=== PATIENT | male | born 2000 | race African-American/Black ===

== ENCOUNTER 2019-07-19 23:29 | Emergency (ER) | payer BC ==
--- NOTE | 2019-07-20 00:10 | EDM.PDOC ---
ED HPI GENERAL MEDICAL PROBLEM - General Chief Complaint: ENT Problem Stated Complaint: SORE THROAT/DIFFICULTY SWALLOWING Time Seen by Provider: 07/19/19 23:56 Source of Information: Reports: Patient History Limitations: Reports: No Limitations - History of Present Illness INITIAL COMMENTS - FREE TEXT/NARRATIVE: Mr. Smyth is a very pleasant 19-year-old man who presents to the ED with a sore throat felt on the right side of his throat since 07/17/2019. He has significant pain with swallowing. No other complaints, such as nasal or sinus congestion, the sensation of postnasal drip, cough, fever, or chills. He states that he has not taken any [id number] or home remedies to try to treat his symptoms. The patient does not have a PCP. He has not received an influenza vaccine this season, but agreed to receive one here in the ED. Throat Pain Score (Numeric/FACES): 8 - Related Data Allergies Allergy/AdvReac Type Severity Reaction Status Date / Time No Known Allergies Allergy Verified 07/19/19 23:55 Home Meds: Home Meds . 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 ED EXAM, ENT - Physical Exam Exam: See Below Exam Limited By: No Limitations General Appearance: Alert, WD/WN, No Apparent Distress Eye Exam: Bilateral Eye: EOMI, Normal Inspection Ears: Other (Left external ear malformed, canal closed. Right external ear, canal, and TM normal, although 2 scars are noted on the right TM. No bulging or fluid seen.) Nose: Other (Moderate bilateral nasal mucosa edema) Mouth/Throat: Normal Gums, Normal Lips, Normal Teeth, Other (Anatomically large right tonsil, with small to moderate sized left tonsil. No oropharyngeal erythema, cobblestoning, or tonsillar exudates.) Head: Atraumatic, Normocephalic Neck: Normal Inspection, Supple, Non-Tender, Full Range of Motion. No: Lymphadenopathy (L), Lymphadenopathy (R) Course - Vital Signs Last Recorded V/S: Last Vital Signs Temp 36.4 C 07/19/19 23:50 Pulse 85 07/19/19 23:50 Resp 18 07/19/19 23:50 BP 141/102 H 07/19/19 23:50 Pulse Ox 97 07/19/19 23:50 - Orders/Labs/Meds Orders: Active Orders 24 hr Category Date Time Status Influenza Vaccine Charge [RC] .DISCHARGE Care 07/20/19 00:04 Active CULTURE STREP A CONFIRMATION [] Stat Lab 07/20/19 00:04 Results STREP SCRN A RAPID W CULT CONF [] Stat Lab 07/20/19 00:04 Results Pharmacy to Dose - InFluenza V [Pharmacy to Dose - Med 07/20/19 00:04 Pending InFluenza Vaccine] 1 each IM ONETIME ONE Medication Orders Influenza Virus Vaccine (Pharmacy To Dose - Influenza Vaccine) 1 each IM ONETIME ONE Stop: 07/20/19 00:05 Meds: Medications Generic Name Dose Route Start Last Admin Trade Name Freq PRN Reason Stop Dose Admin Influenza Virus Vaccine 1 each 07/20/19 00:04 Pharmacy To Dose - Influenza Vaccine IM 07/20/19 00:05 ONETIME ONE Discontinued Medications Generic Name Dose Route Start Last Admin Trade Name Freq PRN Reason Stop Dose Admin Influenza Virus Vaccine 60 mcg 07/20/19 00:15 07/20/19 00:17 Fluzone Quad [id number] Syringe IM 07/20/19 00:16 60 mcg .ONCE ONE Administration - Re-Assessments/Exams Free Text/Narrative Re-Assessment/Exam: 07/20/19 00:05 The patient appears to have an anatomic a large right tonsil, with a small to moderate-sized left tonsil, however, there is no increased erythema to his oropharynx. I swabbed for a rapid strep test. 07/20/19 00:37 The patient's rapid strep test has returned negative. 07/20/19 00:38 Test results discussed with the patient. His negative rapid strep test indicates that his sore throat is likely viral in etiology. I recommended Tylenol or ibuprofen, Chloraseptic spray, and warm salt water gargles. Departure - Departure Time of Disposition: 00:39 Disposition: Home, Self-Care 01 Condition: Good Clinical Impression: Viral pharyngitis - Discharge Information *PRESCRIPTION DRUG MONITORING PROGRAM REVIEWED*: Not Applicable *COPY OF PRESCRIPTION DRUG MONITORING REPORT IN PATIENT TONJA: Not Applicable Referrals: PCP,None [Primary Care Provider] - Forms: ED Department Discharge Additional Instructions: You were seen in the emergency room for a sore throat for the past 2 days. Workup in the ER included a rapid strep test, which returned negative. Based on your history, physical exam, and rapid strep test, you are most likely suffering from viral pharyngitis. Unfortunately, there are no medicines to treat viral pharyngitis - it will have to run its course. We recommend that you take Tylenol or ibuprofen as needed for discomfort, along with Chloraseptic spray and warm salt water gargles. If any other problems, please do not hesitate to return to the ER. *You received an influenza vaccine during your ER visit.* - My Orders Last 24 Hours: My Active Orders 07/20/19 00:04 Influenza Vaccine Charge [RC] .DISCHARGE CULTURE STREP A CONFIRMATION [RM] Stat STREP SCRN A RAPID W CULT CONF [] Stat Pharmacy to Dose - InFluenza V [Pharmacy to Dose - InFluenza Vaccine] 1 each IM ONETIME ONE - Assessment/Plan Last 24 Hours: My Active Orders 07/20/19 00:04 Influenza Vaccine Charge [RC] .DISCHARGE CULTURE STREP A CONFIRMATION [RM] Stat STREP SCRN A RAPID W CULT CONF [] Stat Pharmacy to Dose - InFluenza V [Pharmacy to Dose - InFluenza Vaccine] 1 each IM ONETIME ONE
[2019-07-20] MEDS ORDERED: FLU Vacc QS2019-20(6MOS+)/PF 60 MCG/0.5 ML SYRINGE IM ONE (00:15)
== END 2019-07-20 00:46 | disposition home or self-care (01) ==
LOC: JD.ED 23:29
DX: J02.9 Acute pharyngitis, unspecified (principal); F17.220 Nicotine dependence, chewing tobacco, uncomplicated; Z23 Encounter for immunization
CPT/HCPCS: 87081; 87430; 90471; 90686; 99281; 99283

== ENCOUNTER 2019-08-12 03:03 | Emergency (ER) | payer BC ==
--- NOTE | 2019-08-12 03:27 | EDM.PDOC ---
ED HPI GENERAL MEDICAL PROBLEM - General Chief Complaint: General Stated Complaint: GETTING HOT AND COLD Time Seen by Provider: 08/12/19 03:25 - History of Present Illness INITIAL COMMENTS - FREE TEXT/NARRATIVE: 19-year-old male presents emergency room with hot and cold feelings as well as some nausea. the patient begin to feel ill earlier this evening several hours ago. He noticed that he would get hot and get cold this seemed to be associated with some nausea. He has not vomited he has not had any loose stools he has some stomach upset but no significant abdominal pain. Patient has not had a cough he has not had a headache or any other symptoms at this point with this illness. Abdomen Pain Score (Numeric/FACES): 6 - Related Data Allergies Allergy/AdvReac Type Severity Reaction Status Date / Time No Known Allergies Allergy Verified 08/12/19 03:14 Home Meds: Home Meds Melatonin 3 mg PO BEDTIME 08/12/19 [History] Past Medical History - Past Surgical History HEENT Surgical History: Reports: Oral Surgery, Other (See Below) Other HEENT Surgeries/Procedures: ear reconstructive surgery as a child, wisdom tooth extraction GI Surgical History: Reports: Appendectomy Social & Family History - Tobacco Use Smoking Status *Q: Current Every Day Smoker Years of Tobacco use: 5 Packs/Tins Daily: 0.3 - Caffeine Use Caffeine Use: Reports: Coffee Other Caffeine Use: rarely - Recreational Drug Use Recreational Drug Use: No - Living Situation & Occupation Living situation: Reports: Single, Alone 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 Denies: Malaise, Weakness HEENT: Reports: No Symptoms, Vertigo Cardiovascular: Reports: No Symptoms, Palpitations GI/Abdominal: Reports: Abdominal Pain (Symptoms stomach upset), Nausea. 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) Nose: Normal Inspection, Normal Mucosa, No Blood Throat/Mouth: Normal Inspection, Normal Lips, Normal Teeth, Normal Gums, Normal Oropharynx, Normal Voice, No Airway Compromise Head: Atraumatic, Normocephalic Neck: Normal Inspection, Supple, Non-Tender, Full Range of Motion Respiratory/Chest: No Respiratory Distress, Lungs Clear, Normal Breath Sounds, No Accessory Muscle Use, Chest Non-Tender Cardiovascular: Normal Peripheral Pulses, Regular Rate, Rhythm, No Edema, No Gallop, No JVD, No Murmur, No Rub GI/Abdominal: Normal Bowel Sounds, Soft, Non-Tender, Other (He has some stomach upset not worsened with palpation) Back Exam: Normal Inspection. No: CVA Tenderness (L), CVA Tenderness (R) Extremities: Normal Inspection Neurological: Alert, Oriented, Normal Cognition Psychiatric: Normal Affect, Normal Mood Skin Exam: Warm, Dry, Intact, Normal Color Course - Vital Signs Last Recorded V/S: Last Vital Signs Temp 36.1 C 08/12/19 03:12 Pulse 75 08/12/19 03:12 Resp 16 08/12/19 03:12 BP 140/91 H 08/12/19 03:12 Pulse Ox 97 08/12/19 03:12 - Orders/Labs/Meds Meds: Medications Discontinued Medications Generic Name Dose Route Start Last Admin Trade Name Freq PRN Reason Stop Dose Admin Ondansetron HCl 4 mg 08/12/19 03:34 08/12/19 03:39 Zofran Odt PO 08/12/19 03:35 4 mg ONETIME ONE Administration - Re-Assessments/Exams Free Text/Narrative Re-Assessment/Exam: 08/12/19 04:25 Patient was given a Zofran to see if this will help with his nausea and if so if it made the warm and cold feelings better. After getting Zofran the patient decided to leave as he had to go to work I was not able to reevaluate him. Departure - Departure Time of Disposition: 04:15 Disposition: Eloped 07 Clinical Impression: Nausea, Fever and chills - Discharge Information Referrals: PCP,None [Primary Care Provider] - Forms: ED Department Discharge
[2019-08-12] MEDS ORDERED: Ondansetron 4 MG Tab.DIS PO ONE (03:34)
== END 2019-08-12 04:17 | disposition left against medical advice (07) ==
LOC: JD.ED 03:03
DX: R11.0 Nausea (principal); R50.9 Fever, unspecified; F17.210 Nicotine dependence, cigarettes, uncomplicated
CPT/HCPCS: 99283; A9270